=== PATIENT | female | born 1985 | race Caucasian/White ===

== ENCOUNTER 2022-07-25 15:56 | Emergency (ER) | payer MEDICAID ==
[~2022-07-25] VITALS: Ht 139.1 cm; Wt 62.6 kg
[2022-07-25 16:08] VITALS: BP 129/97
[2022-07-25] MEDS ORDERED: CYCL10TA25 PO (17:38)
--- NOTE | 2022-07-25 17:38 | ED Neurological Problem ---
General Chief Complaint: Neurological Problems Stated Complaint: SEIZURE ACTIVITY Nursing Triage Note: PT AMBULATORY TO ROOM. PT STATES SHE HAS A SEIZURE DISORDER AND HAD TWO HOURS OF OFF AND ON SEIZURE ACTIVITY LAST NIGHT. PT REPORTS SHE HAS NOT HAD ANY SEIZURE ACTIVITY TODAY BUT STATES SHE "HURTS ALL OVER" AND FEELS "LIKE SHE GOT HIT BY A CAR" AFTER LAST NIGHT SEIZURES. STATES SHE TOOK TWO ALEVE THIS AM AND HAS TAKEN HER CBD WITH NO PAIN RELIEF. PT STATES SHE HAS NOT BEEN ON ANY SEIZURE MEDS FOR A YEAR AFTER HER DR WEANED HER OFF OF THEM Source: patient Exam Limitations: no limitations History of Present Illness Date Seen by Provider: Jul 25, 2022 Time Seen by Provider: 16:51 Initial Comments Patient to the ER by private conveyance with chief complaint that she has a history of seizure disorder followed by Dr. Valenzuela at [facility] and neurologist who did her EEG at [place]. She has been off of her antiepileptics for about a year because she did not like the way they made her feel. She had several 2- minute seizures last night. She says they are triggered by her stress. 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 She said she had a very stressful evening last night. She is now feeling body aches. She is not having fevers or nausea. She would like something to help with her discomfort but does not want to go back on her antiepileptics yet. Primary care by Dr. Oliveira at [facility]. Allergies and Home Medications Allergies Coded Allergies: No Known Drug Allergies (Unverified , 07/25/22) Patient Home Medication List Home Medication List Reviewed: Yes Cyclobenzaprine HCl (Cyclobenzaprine HCl) 10 Mg Tablet, 10 MG PO Q8H PRN for SPASMS Prescribed by: TRISH ARRIETA on 07/25/22 1738 Review of Systems Review of Systems Constitutional: No chills, No diaphoresis Eyes: Denies Blindness, Denies Blurred Vision Ears, Nose, Mouth, Throat: denies ear pain, denies ear discharge Respiratory: No cough, No short of breath Cardiovascular: No chest pain, No edema Gastrointestinal: No abdominal pain, No nausea, No vomiting Genitourinary: No discharge, No dysuria Musculoskeletal: No back pain, No joint pain; muscle pain All Other Systems Reviewed Negative Unless Noted: Yes Past Gcwgmvz-Kuesah-Vxpsnx Hx Patient Social History Tobacco Use?: No Use of E-Cig and/or Vaping dev: No Substance use?: No Physical Exam Vital Signs Vital Signs - First Documented 07/25/22 16:08 Temp 36.3 Pulse 86 Resp 14 B/P (MAP) 129/97 (108) Pulse Ox 98 Capillary Refill : Height, Weight, BMI Height: '" Weight: lbs. oz. kg; 32.00 BMI Method: General Appearance: WD/WN, no apparent distress HEENT: PERRL/EOMI, pharynx normal Neck: full range of motion, supple, normal inspection Respiratory: lungs clear, normal breath sounds, no respiratory distress, no accessory muscle use Cardiovascular: normal peripheral pulses, regular rate, rhythm Gastrointestinal: non tender, soft Extremities: normal inspection, normal capillary refill Progress/Results/Core Measures Results/Orders Vital Signs/I&O 07/25/22 16:08 Temp 36.3 Pulse 86 Resp 14 B/P (MAP) 129/97 (108) Pulse Ox 98 Blood Pressure Mean: 108 Progress Progress Note : Time: 17:34 Progress Note Well-appearing, nonacute with a septic vital signs. Plan to give her a shot of Toradol and a muscle relaxant and some cyclobenzaprine. Follow-up precautions. Patient is happy with this plan Departure Impression Primary Impression: Generalized body aches Additional Impression: Epilepsy Qualified Codes: G40.909 - Epilepsy, unspecified, not intractable, without status epilepticus Disposition: 01 HOME, SELF-CARE Condition: Stable Departure-Patient Inst. Decision time for Depature: 17:36 Referrals: NO,LOCAL PHYSICIAN (PCP/Family) Primary Care Physician Patient Instructions: Seizures, Fatigue ED Add. Discharge Instructions: Cyclobenzaprine 1 tablet every 8 hours as needed for muscle spasms. This will cause some drowsiness. Go home and get some sleep. Tylenol 1000 mg every 8 hours as needed for pain. Ibuprofen 800 mg every 8 hours needed for pain. Drink a lot of extra fluids to help your muscles regenerate and this will get you through the pain quicker. All discharge instructions reviewed with patient and/or family. Voiced understanding. Scripts Cyclobenzaprine HCl (Cyclobenzaprine HCl) 10 Mg Tablet 10 MG PO Q8H PRN for SPASMS, #15 TAB 0 Refills Prov: TRISH ARRIETA 07/25/22 TRISH ARRIETA Jul 25, 2022 17:38
[2022-07-25] MEDS ORDERED: ORPHENADRINE 60 MG/2 ML (NORFLEX) AMP (ED ONLY) IM ONE (18:00)
[2022-07-25] MEDS ORDERED: KETOROLAC 60 MG/2 ML VIAL IM ONE (18:00)
== END 2022-07-25 18:03 | disposition home or self-care (01) ==
LOC: ER 15:59
DX: G40.909 Epilepsy, unspecified, not intractable, without status epilepticus (principal); R52 Pain, unspecified; Z28.310 Unvaccinated for COVID-19
CPT/HCPCS: 99281

== ENCOUNTER 2023-02-09 13:56 | Emergency (ER) | payer MEDICAID ==
[~2023-02-09] VITALS: Ht 145 cm; Wt 58.0 kg
[~2023-02-09 13:56] MED LIST: CYCL10TA25 PO
[2023-02-09] MEDS ORDERED: IBUPROFEN 800 MG (MOTRIN) TAB PO ONE (14:30)
--- NOTE | 2023-02-09 14:57 | Diagnostic Imaging Report ---
INDICATION: Left knee pain AP, oblique, and lateral views of the left knee are obtained. No fracture or acute bony abnormality seen. Joint spaces are unremarkable. IMPRESSION: Negative left knee. Dictated by: Dictated on workstation # [id number]
--- NOTE | 2023-02-09 15:01 | ED Trauma-Multisystem ---
General Chief Complaint: Trauma-Non Activation Stated Complaint: FALL | RT FOOT. LT LEG, LT ARM PAIN Nursing Triage Note: PT STATES SHE FELL FROM STANDING POSITION, CC OF RT FOOT AND LT ARM, STRAINED LT NECK FROM SHOULDER PAIN, AND LEG PAIN. DENIES LOC Source of Information: Patient Exam Limitations: No Limitations History of Present Illness Date Seen by Provider: Feb 09, 2023 Time Seen by Provider: 14:16 Initial Comments 38-year-old female presents to the ED after a fall. States that she was trying to put on pajamas when her foot got caught, causing her to fall and land on her left side. She is complaining of pain in her toes of her right foot, her left foot, left knee pain, left shoulder, elbow, and wrist. Reports she placed half of a topical THC medicinal patch, which has not helped her pain. Denies chest pain, shortness of air, abdominal pain, nausea, vomiting, diarrhea. Allergies and Home Medications Allergies Coded Allergies: No Known Drug Allergies (Unverified , 07/25/22) Patient Home Medication List Home Medication List Reviewed: Yes Cyclobenzaprine HCl (Cyclobenzaprine HCl) 10 Mg Tablet, 10 MG PO Q8H PRN for SPASMS Prescribed by: TRISH ARRIETA on 07/25/22 1738 Cyclobenzaprine HCl (Cyclobenzaprine HCl) 10 Mg Tablet, 10 MG PO TID Prescribed by: Elena Sánchez on 02/09/23 1538 Review of Systems Review of Systems Constitutional: see HPI Past Etejdvq-Sfneau-Hdqxiq Hx Patient Social History Tobacco Use?: Yes Tobacco type used: Cigarettes Smoking Status: Current Everyday Smoker Substance use?: Yes Substance type: Marijuana Alcohol Use?: No Past Medical History Surgery/Hospitalization HX: TUBAL LIGATION, ASTHMA, TBI'S WITH SEIZURES Last Menstrual Period: Jan 29, 2023 Physical Exam Vital Signs Vital Signs - First Documented 02/09/23 14:04 Temp 37.0 Pulse 79 Resp 20 B/P (MAP) 126/64 (84) Pulse Ox 97 O2 Delivery Room Air Height, Weight, BMI Height: '" Weight: lbs. oz. kg; 27.00 BMI Method: General Appearance: No Apparent Distress, WD/WN Head: No Evidence of Injury Neck: Full Range of Motion, Normal Inspection, Supple, Tender Lateral; No Tender Midline Cardiovascular: Regular Rate, Rhythm, No Edema, No Gallop, No JVD, No Murmur Respiratory: Lungs Clear, Normal Breath Sounds, No Accessory Muscle Use, No Respiratory Distress Back: Normal Inspection Extremity: Normal Capillary Refill, Normal Inspection, Normal Range of Motion, Other (Tenderness in left shoulder, left elbow, left wrist, left hip, left knee, left foot, right toes) Neurologic/Psychiatric: Alert, No Motor/Sensory Deficits Skin: Normal Color, Warm/Dry Progress/Results/Core Measures Results/Orders My Orders Orders - ELENA SÁNCHEZ APRN Shoulder, Left, 3 Views (02/09/23 14:21) Elbow, Left, 3 Views (02/09/23 14:21) Wrist, Left, 3 Views Or More (02/09/23 14:21) Knee, Left, 3 Views (02/09/23 14:21) Hip, Left, 2 Views (02/09/23 14:21) Foot, Bilateral, 3 View (02/09/23 14:21) Ibuprofen Tablet (Motrin Tablet) (02/09/23 14:30) Medications Given in ED Vital Signs/I&O 02/09/23 02/09/23 02/09/23 14:04 14:36 15:47 Temp 37.0 37.0 37.0 Pulse 79 79 Resp 20 20 B/P (MAP) 126/64 (84) 126/64 Pulse Ox 97 97 O2 Delivery Room Air Room Air Blood Pressure Mean: 84 Progress Progress Note : Time: 14:22 Progress Note Patient seen and evaluated, resting comfortably in recliner, no acute distress. Based on exam and symptoms, concerned for fractures or dislocations. X-rays ordered of left shoulder, left elbow, left wrist, left hip, left knee, bilateral feet. Ibuprofen ordered. X-rays reviewed. No acute fractures or dislocations. Results discussed with patient. Will discharge with muscle relaxer. Instructed to take up to ibuprofen as needed for pain. Instructed not to take Aleve and ibuprofen at the same time, patient states she has done that in the past. Instructed that she may take Tylenol with ibuprofen if needed. Discharge directions and return precautions provided. Departure Impression Primary Impression: Fall Disposition: 01 HOME, SELF-CARE Condition: Stable Departure-Patient Inst. Decision time for Depature: 15:36 Referrals: NO,LOCAL PHYSICIAN (PCP/Family) Primary Care Physician Patient Instructions: Muscle and Bone Pain (DC) Add. Discharge Instructions: Take Flexeril up to 3 times a day as needed for muscle pain, it may cause sleepiness. Take 800 mg of ibuprofen every 8 hours with food as needed for pain. You may also take 1000 mg of Tylenol every 8 hours as needed for pain. Follow-up with primary care provider if pain continues. Return for worsening pain, or any other new, concerning, or worsening symptoms. All discharge instructions reviewed with patient and/or family. Voiced understanding. Scripts Cyclobenzaprine HCl (Cyclobenzaprine HCl) 10 Mg Tablet 10 MG PO TID, #21 TAB 0 Refills Prov: ELENA SÁNCHEZ APRN 02/09/23 ELENA SÁNCHEZ APRN Feb 09, 2023 15:01
--- NOTE | 2023-02-09 15:02 | Diagnostic Imaging Report ---
INDICATION: Elbow pain. FINDINGS: Three-view left elbow performed. No fracture, dislocation, or acute articular irregularity. IMPRESSION: No acute appearing abnormality. Dictated by: Dictated on workstation # [id number]
--- NOTE | 2023-02-09 15:03 | Diagnostic Imaging Report ---
INDICATION: Fall, pain. FINDINGS: Two-view left hip performed. No fracture, dislocation, or acute articular irregularity. IMPRESSION: No acute appearing abnormality. Dictated by: Dictated on workstation # [id number]
--- NOTE | 2023-02-09 15:04 | Diagnostic Imaging Report ---
INDICATION: Fall, pain. FINDINGS: Three-view left shoulder performed. No fracture, dislocation, or acute articular irregularity. IMPRESSION: No acute appearing abnormality. Dictated by: Dictated on workstation # [id number]
--- NOTE | 2023-02-09 15:04 | Diagnostic Imaging Report ---
INDICATION: Wrist pain. FINDINGS: Three-view left wrist performed. No fracture, dislocation, or acute articular irregularity. IMPRESSION: No acute-appearing abnormality. Dictated by: Dictated on workstation # [id number]
--- NOTE | 2023-02-09 15:05 | Diagnostic Imaging Report ---
INDICATION: Fall from standing. FINDINGS: Three-view bilateral feet showed no fracture or dislocation. IMPRESSION: No acute-appearing abnormality. Dictated by: Dictated on workstation # [id number]
[2023-02-09] MEDS ORDERED: CYCL10TA25 PO (15:38)
[2023-02-09 15:47] VITALS: BP 126/64
== END 2023-02-09 15:47 | disposition home or self-care (01) ==
LOC: EDUNIT# 13:56 → ER 13:59
DX: M79.671 Pain in right foot (principal); M79.672 Pain in left foot; M25.512 Pain in left shoulder; M25.532 Pain in left wrist; M25.522 Pain in left elbow; M25.562 Pain in left knee; M79.674 Pain in right toe(s); F17.210 Nicotine dependence, cigarettes, uncomplicated; Z28.310 Unvaccinated for COVID-19; W18.30XA Fall on same level, unspecified, initial encounter
CPT/HCPCS: 73030; 73080; 73110; 73502; 73562